=== PATIENT | female | born 1980 | race Caucasian/White ===

== ENCOUNTER → 2020-01-26 | Outpatient (CLI) | payer OTHER | END | disposition home or self-care (01) | LOC: TOM 09:00 | DX: K57.90 Diverticulosis of intestine, part unspecified, without perforation or abscess without bleeding (principal) ==

== ENCOUNTER 2020-02-07 16:01 | Outpatient (CLI) | payer OTHER | END 2020-02-07 16:09 | disposition home or self-care (01) | LOC: LAB 16:01 | PROVIDERS: ATTEND Radiology Diagnostic Radiology | DX: N20.0 Calculus of kidney (principal) ==

== ENCOUNTER → 2020-02-09 | Outpatient (CLI) | payer OTHER | END | disposition home or self-care (01) | LOC: MRI 09:43 | PROVIDERS: ATTEND Internal Medicine | DX: M48.36 Traumatic spondylopathy, lumbar region (principal); G63 Polyneuropathy in diseases classified elsewhere; G40.209 Localization-related (focal) (partial) symptomatic epilepsy and epileptic syndromes with complex partial seizures, not intractable, without status epilepticus | CPT/HCPCS: 70553; 72158 ==